=== PATIENT | male | born 1935 | race Two or more races ===

== ENCOUNTER → 2018-10-14 | Emergency (ER) | payer OTHER ==
[~2018-10-14] VITALS: Ht 182.9 cm; Wt 108.9 kg
[~2018-10-14] MED LIST: ADULT ASPIRIN81 MG; CATAFLAM50 MG; ENALAPRIL MALEA10 MG; GABAPENTIN100 MG
== END | disposition home or self-care (01) ==
LOC: ER 18:39 → CPU-OBS 19:14 → ER 19:14
DX: R07.89 Other chest pain (principal); R06.02 Shortness of breath